=== PATIENT | male | born 1960 | race Caucasian/White ===

== ENCOUNTER 2017-08-28 12:45 | Emergency (ER) | payer BC | END 2017-08-28 14:15 | disposition home or self-care (01) | LOC: FTE 12:45 | DX: M77.11 Lateral epicondylitis, right elbow (principal) | CPT/HCPCS: 73080; 73080-RT; 99283-25 ==

== ENCOUNTER 2018-12-03 05:47 | Emergency (ER) | payer BC ==
[2018-12-03] MEDS ORDERED: ONDANSETRON 4 MG INJ (06:25)
[2018-12-03] MEDS: LEVOFLOXACIN 750MG/D5W (PMX) 150 ML IVPB (06:53)
[2018-12-03 06:54] LABS: ADD MAN DIFF? NO
[2018-12-03] MEDS: morphine 4 MG/ML VIAL IV ×2 (06:54→07:57)
[2018-12-03 07:00] LABS: WHITE BLOOD COUNT 7.6 10^3/ul (4.8-10.8)
[2018-12-03 07:00] LABS: BASOPHILS % 0.3 % (0.0-2.0); EOSINOPHILS # 0.3 10^3/ul (0.0-0.5); EOSINOPHILS % 4.1 % (0.0-7.0); HEMOGLOBIN 14.2 g/dl (14.0-18.0); LYMPHOCYTES # 2.4 10^3/ul (0.8-2.9); LYMPHOCYTES % 30.8 % (15.0-51.0); MEAN CORPUSCULAR HEMOGLOBIN 32.8 pg (29.0-33.0); MEAN CORPUSCULAR HGB CONC 33.8 g/dl (32.0-37.0); MEAN PLATELET VOLUME 9.4 fl (7.4-10.4); MONOCYTE # 0.5 10^3/ul (0.3-0.9); MONOCYTES % 6.2 % (0.0-11.0); NEUTROPHIL # 4.5 10^3/ul (1.6-7.5); NEUTROPHILS % 58.3 % (39.0-77.0); PLATELET COUNT 193 10^3/UL (140-415); RED BLOOD COUNT 4.33 10^6/ul (4.70-6.10); RED CELL DISTRIBUTION WIDTH 12.8 % (11.5-14.5)
[2018-12-03] MEDS: metroNIDAZOLE 500 MG/NS (PMX) 100 ML IVPB (07:56)
[2018-12-03] MEDS: KETOROLAC 30 MG INJ IV (07:57)
[2018-12-03 08:05] LABS: ADD UMIC NO; UR ASCORBIC ACID NEGATIVE (NEGATIVE); UR BILIRUBIN (Dip) NEGATIVE (NEGATIVE); UR BLOOD (Dip) NEGATIVE (NEGATIVE); UR CLARITY CLEAR (CLEAR); UR COLOR YELLOW (YELLOW); UR GLUCOSE (Dip) NEGATIVE (NEGATIVE); UR KETONES (Dip) NEGATIVE (NEGATIVE); UR LEUKOCYTE ESTERASE (Dip) NEGATIVE Leu/ul (NEGATIVE); UR NITRITE (Dip) NEGATIVE (NEGATIVE); UR SPECIFIC GRAVITY (Dip) 1.018 (1.003-1.030); UR TOTAL PROTEIN (Dip) NEGATIVE (NEGATIVE); UR UROBILINOGEN (Dip) NEGATIVE (NEGATIVE)
[2018-12-03 08:08] LABS: URINE PH (Dip) POC 5.5 (5.0-8.5)
[2018-12-03 08:08] LABS: URINE BLOOD (Dip) POC 1+ (NEGATIVE); URINE GLUCOSE (Dip) POC Negative (NEGATIVE); URINE KETONES (Dip) POC Negative (NEGATIVE); URINE LEUKOCYTE EST (Dip) POC Negative (NEGATIVE); URINE NITRITE (Dip) POC Negative (NEGATIVE); URINE TOTAL PROTEIN POC Negative (NEGATIVE)
== END 2018-12-03 09:34 | disposition home or self-care (01) ==
LOC: E/R 09:34
DX: R10.32 Left lower quadrant pain (principal); Z87.19 Personal history of other diseases of the digestive system; Z87.891 Personal history of nicotine dependence
CPT/HCPCS: 36415; 81003; 85025; 96365; 96375; 96376; 99284-25